=== PATIENT | male | born 1995 | race Caucasian/White ===

== ENCOUNTER 2020-02-21 15:04 | Emergency (ER) | payer BC | END 2020-02-21 15:33 | disposition home or self-care (01) | LOC: JVIRT 15:04 | DX: Z03.818 Encounter for observation for suspected exposure to other biological agents ruled out (principal) | CPT/HCPCS: C9803; G2012-GT; Q3014-GT; U0003 ==

== ENCOUNTER 2020-10-03 23:10 | Emergency (ER) | payer BC ==
[2020-10-03 23:17] VITALS: TEMP 98.7; BMI 38.9
[2020-10-03] MEDS ORDERED: BUPIVACAINE HCL/PF 0.5% (5 MG/ML) 30 ML VIAL IJ ONE (23:45)
[2020-10-03] MEDS ORDERED: LIDOCAINE HCL 2% (50ML VIAL) SQ ONE (23:47)
[2020-10-04] MEDS ORDERED: CLINDAMYCIN 900 MG PREMIX IVPB 900 MG/50 ML BAG IVPB ONE (00:01)
[2020-10-04] MEDS ORDERED: CLINDAMYCIN PHOSPHATE 300 MG/2 ML VIAL ONE (00:31)
[2020-10-04] MEDS ORDERED: CLINDAMYCIN PHOSPHATE 600 MG/4 ML VIAL ONE (00:32)
[2020-10-04] MEDS ORDERED: LIDOCAINE HCL 2% (20ML MULTI-DOSE VIAL) ONE (00:37)
[2020-10-04 01:07] LABS: BASO % 0.4 % (0-2.0); EOS % 2.3 % (0-4.5); HEMOGLOBIN 13.1 GM/dL (11.7-16.9); LYMPH % 18.8 % (8-40); MCHC 33.7 g/dl (32.0-35.9); MEAN PLT VOLUME 9.5 fl (7.5-11.1); MONO % 11.4 % (3.8-10.2); NEUT % 67.1 % (42.8-82.8); PLATELET COUNT 178 10^3/uL (134-434); RBC 4.53 M/mm3 (4.00-5.60); RDW 13.8 % (11.9-15.9); WHITE BLOOD COUNT 9.9 K/mm3 (4.0-10.0)
[2020-10-04 01:36] LABS: ALBUMIN 3.8 g/dl (3.4-5.0); BLOOD UREA NITROGEN 15.6 mg/dL (7-18); CALCIUM 8.6 mg/dL (8.5-10.1)
[2020-10-04 01:40] LABS: CREATININE 0.7 mg/dL (0.55-1.3)
[2020-10-04 01:41] LABS: BILIRUBIN,TOTAL 1.5 mg/dL (0.2-1); TOT PROT 7.1 g/dl (6.4-8.2)
[2020-10-04] MEDS ORDERED: morphine SULFATE 4 MG/ML VIAL ONE (02:55)
[2020-10-04] MEDS ORDERED: morphine CARPU-JECT 4 MG/1 ML DISP.SYRIN IVPUSH ONE (03:05)
[2020-10-04 03:18] VITALS: BP 131/71; PULSE 50
== END 2020-10-04 03:33 | disposition short-term general hospital (02) ==
LOC: FER 23:10
PROC: 3E03329 Introduction of Other Anti-infective into Peripheral Vein, Percutaneous Approach (ICD-10-PCS; principal; 2020-10-03)
PROC: 3E033NZ Introduction of Analgesics, Hypnotics, Sedatives into Peripheral Vein, Percutaneous Approach (ICD-10-PCS; 2020-10-03)
DX: K04.7 Periapical abscess without sinus (principal)
CPT/HCPCS: 36415; 70491-TC; 80053; 85025; 99285-25; C9803; U0003; U0005

== ENCOUNTER 2022-11-24 13:32 | Emergency (ER) | payer BC ==
[2022-11-24] MEDS ORDERED: DEXAMETHASONE SOD PHOSPHATE 10 MG/1 ML VIAL PO ONE (13:44)
[2022-11-24] MEDS ORDERED: DEXAMETHASONE 4 MG TABLET (FP) ONE (13:49)
[2022-11-24 14:01] VITALS: BP 130/80; PULSE 107; RESP 16; TEMP 99.3; BMI 37.2
== END 2022-11-24 14:03 | disposition home or self-care (01) ==
LOC: FER 13:32
DX: J02.9 Acute pharyngitis, unspecified (principal); R09.81 Nasal congestion; R06.9 Unspecified abnormalities of breathing; B34.9 Viral infection, unspecified; R59.0 Localized enlarged lymph nodes; U07.1 COVID-19
CPT/HCPCS: 0241U-QW; 99283-25; J1100

== ENCOUNTER 2023-02-18 14:53 | Emergency (ER) | payer BC ==
[2023-02-18] MEDS ORDERED: KETOROLAC TROMETHAMINE 30 MG/1 ML VIAL IM ONE (15:10)
[2023-02-18] MEDS ORDERED: KETOROLAC TROMETHAMINE 30 MG/1 ML VIAL ONE (15:38)
[2023-02-18 16:16] VITALS: BP 138/71; PULSE 74; RESP 16; TEMP 97.3; BMI 37.2
== END 2023-02-18 16:27 | disposition home or self-care (01) ==
LOC: FER 14:53
PROC: 3E0233Z Introduction of Anti-inflammatory into Muscle, Percutaneous Approach (ICD-10-PCS; principal; 2023-02-18)
DX: M79.671 Pain in right foot (principal)
CPT/HCPCS: 73610-TC-RT-FY; 73630-TC-RT-FY; 99284-25